=== PATIENT | female | born 1965 | race Caucasian/White ===

== ENCOUNTER 2025-01-07 08:21 | Outpatient (AMB) | payer MEDICAID, SELFPAY ==
[2025-01-07 08:36] VITALS: BP 115/72; PULSE 62; RESP 16; TEMP 36.6; O2SAT 95; BMI 25.6
--- NOTE | 2025-01-07 08:36 | PD.ORTHCLVIS ---
Vital signs 01/07/25 08:36 Height 1.57 m Height Method Measured Weight 63.531 kg Weight Measurement Method Standing Scale BMI 25.6 BP 115/72 Blood Pressure Source Automatic Cuff Blood Pressure Location Left Upper Arm Position Sitting Respiration 16 Pulse 62 Pulse Source Monitor Temp 97.9 F Temp Source Temporal Artery Scan Pulse Oximetry (%) 95 Oxygen Delivery Method Room Air Med/Allergies Allergies & Medications Allergies Penicillins Allergy (Verified 01/07/25 08:37) Pork/Porcine Containing Products Allergy (Verified 01/07/25 08:37) CHILE Allergy (Uncoded 01/07/25 08:37) Exam Exam Patient is in no acute distress and is cooperative with the examination today. Breathing is nonlabored. In no respiratory distress. Patient has no paraspinal tenderness. Spinal deformity cannot be appreciated. The gait of the patient is nonantalgic Bilateral extremities were evaluated and demonstrates sensation intact to light touch. Palpable pedal pulses are present. No significant edema is present. Bilateral knees were examined and the patient has full strength and range of motion.. The left hip was examined. Patient was able to flex to 90 degrees, adduct to 30 degrees, abduct to 40 degrees, internally rotate to 20 degrees, and externally rotate to 20 degrees. Patient has a negative logroll. Stinchfield is negative. The patient is nontender diffusely to touch. The right hip was examined. Patient was able to flex to 90 degrees, adduct to 30 degrees, abduct to 40 degrees, internally rotate to 20 degrees, and externally rotate to 20 degrees. Patient has a negative logroll. The stinchfield is negative. The patient is nontender to palpation X-rays demonstrate no significant arthritis with joint space narrowing. 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 We discussed different treatment options. We recommend physical therapy and anti-inflammatories as well as a possible injection of her hip. She would like to try conservative treatment at this time. We will get authorization for injections. 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 ([id number]) MA Intake Visit Data Collection New Patient or Established: New Patient (never been to [facility]) Reason for Visit:: RIGHT HIP PAIN Seen by Clinical Staff ONLY (RN/MA): No Fender Finisher Required: Yes PCP or OBGYN visit in last 3 months: Yes Hx Now: No Do You Feel Safe at Home: Yes Authorities Contacted: N/A Questionairres Past Medical History Past Medical History Have you ever been diagnosed with any of the following: Respiratory Problems Smoking: No Smoking Cessation Counseling: No Smoking Exposure: No Subjective Visit Visit for: new patient and hip Immunization / Flu Flu Vaccine in the Last 12 Months: Yes Flu Vaccine Exclusion Criteria: Already Received History of Present Illness Chief complaint: RIGHT HIP PAIN Date of injury / onset of symptoms: AUGUST 07, 2024 Patient is a 59-year-old female with a lateral sided right hip pain that has been ongoing for 4 to 5 months. She has tried Tylenol with some relief. She any physical therapy. The pain is on the side and she has pain when she tries to sleep on it with any direct pressure. She has not had any injections in the past.. 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
== END 2025-01-07 08:57 | disposition home or self-care (01) ==
LOC: HODSRG 08:21
PROVIDERS: PCP Nurse Practitioner Family; Referring Provider Nurse Practitioner Family; Supervising Provider Orthopaedic Surgery Adult Reconstructive Orthopaedic Surgery; Visit Provider Orthopaedic Surgery Adult Reconstructive Orthopaedic Surgery
DX: M70.61 Trochanteric bursitis, right hip (principal); M25.551 Pain in right hip
CPT/HCPCS: 99204; G0463